=== PATIENT | male | born 1965 | race Caucasian/White ===

== ENCOUNTER 2023-01-09 07:55 | Outpatient (CLI) | payer OTHER | END 2023-01-09 08:07 | disposition home or self-care (01) | LOC: LAB 07:55 | DX: D50.9 Iron deficiency anemia, unspecified (principal); E78.5 Hyperlipidemia, unspecified; R94.6 Abnormal results of thyroid function studies; I10 Essential (primary) hypertension; Z13.0 Encounter for screening for diseases of the blood and blood-forming organs and certain disorders involving the immune mechanism ==

== ENCOUNTER 2023-02-25 07:40 | Outpatient (CLI) | payer OTHER | END 2023-02-25 07:52 | disposition home or self-care (01) | LOC: TOM 07:40 | DX: R31.29 Other microscopic hematuria (principal); Z12.5 Encounter for screening for malignant neoplasm of prostate | CPT/HCPCS: 74178; Q9965 ==